=== PATIENT | female | born 1985 | race Caucasian/White ===

== ENCOUNTER 2018-05-12 19:49 | Observation (INO) ==
[2018-05-12 20:11] LABS: Basophils % 0.4 % (0.1-2.0); Eosinophils # 0.2 K/mm3 (0.0-0.4); Eosinophils % 1.9 % (0.1-12.0); Lymphocytes # 4.5 K/mm3 (0.7-4.5); Lymphocytes % 52.2 K/mm3 (10-50); Mean Corpuscular HGB Conc 33.3 g/dL (31.8-35.4); Mean Corpuscular Hemoglobin 29.4 pg (27.0-31.2); Mean Corpuscular Volume 88.4 fl (81-99); Mean Platelet Volume 8.2 fl (7.4-10.4); Monocytes # 0.5 K/mm3 (0.1-1.0); Monocytes % 5.4 % (1.7-9.3); Neutrophils # 3.5 K/mm3 (1.8-7.8); Neutrophils % 40.1 % (37.0-80.0); Platelet Count 253 K/mm3 (142-424); Red Blood Count 4.76 M/mm3 (4.20-5.40); Red Cell Distribution Width 12.7 % (11.5-17.5); White Blood Count 8.7 K/mm3 (4.8-10.8)
[2018-05-12 20:28] LABS: Alanine Aminotransferase 21 U/L (12-78); Albumin/Globulin Ratio 1.1 (1.1-1.8); Alkaline Phosphatase 78 U/L (46-116); Anion Gap 13.8 mEq/L (5-15); Aspartate Amino Transferase 10 U/L (15-37); Bilirubin,Total 0.3 mg/dL (0.2-1.0); Blood Urea Nitrogen 3 mg/dL (7-18); Calcium 8.6 mg/dL (8.5-10.1); Carbon Dioxide 25 mmol/L (21.0-32.0); Chloride 107 mmol/L (98-107); Globulin 3.6 gm/dl (1.3-3.2); Glucose 101 mg/dL (74-106); Sodium 143 mmol/L (136-145); Total Protein,Serum 7.6 gm/dL (6.4-8.2)
[2018-05-12 20:29] LABS: Potassium 2.8 mmoL/L (3.5-5.1)
--- NOTE | 2018-05-12 21:25 | Emergency Department Note ---
ED Disposition Clinical Impression: Unstable angina, Hypokalemia Disposition: Admitted as Observation Condition on Discharge: Good Referrals: Bibi Price APRN [Primary Care Provider] - - Critical Care Critical Care Time: No Attestation: On 05/12/18, the high probability of a clinically significant, sudden or life threatening deterioration of the following system(s) required my full and direct attention, intervention and personal management. The time I documented below is in addition to time spent performing reported procedures but includes the following listed in this critical care notation. Medical Decision Making - Medical Records Medical records reviewed: Yes: I reviewed the patient's medical records. - Booker Inquiry Pt receiving controlled substance: No Vital Signs: 05/12/18 19:49 Temperature 98.3 F Temperature Source Oral Pulse Rate [Right Radial] 108 H Respiratory Rate 18 Blood Pressure [Right Arm] 147/89 Blood Pressure Mean [Right Arm] 108 Blood Pressure Source [Right Arm] Automatic Cuff Blood Pressure Position [Right Arm] Sitting 02 Sat by Pulse Oximetry 99 Oxygen Delivery Method Room Air - Lab Data Lab results reviewed: Yes: I reviewed the patient's lab results. Lab Results 05/12/18 19:50: WBC 8.7, RBC 4.76, Hgb 14.0, Hct 42.0, MCV 88.4, MCH 29.4, MCHC 33.3, RDW 12.7, Plt Count 253, MPV 8.2, Neut % (Auto) 40.1, Lymph % (Auto) 52.2 H, [place] % (Auto) 5.4, Eos % (Auto) 1.9, Baso % (Auto) 0.4, Neut # (Auto) 3.5, Lymph # (Auto) 4.5, [place] # (Auto) 0.5, Eos # (Auto) 0.2, Baso # (Auto) 0.0 05/12/18 19:50: Sodium 143, Potassium 2.8 L*, Chloride 107, Carbon Dioxide 25, Anion Gap 13.8, BUN 3 L, Creatinine 0.80, Estimated Creat Clear 99, Estimated GFR 82, Est GFR ( Amer) 99, Glucose 101, Calcium 8.6, Total Bilirubin 0.3 , AST 10 L, ALT 21, Alkaline Phosphatase 78, Troponin I < 0.02, Total Protein 7.6, Albumin 4.0, Globulin 3.6 H, Albumin/Globulin Ratio 1.1 Result diagrams: 05/12/18 19:50 05/12/18 19:50 Orders (Tests/Meds): ED MEDICATIONS Generic Name Dose Route Start Last Admin Trade Name Freq PRN Reason Stop Dose Admin Enoxaparin Sodium 60 mg 05/12/18 21:15 Lovenox 60mg/0.6ml Syringe SQ 06/11/18 21:14 BID EDIS Discontinued Medications Generic Name Dose Route Start Last Admin Trade Name Freq PRN Reason Stop Dose Admin Aspirin 324 mg 05/12/18 20:46 05/12/18 20:54 Aspirin 81mg Chewable Tablet PO 05/12/18 20:47 324 mg ONCE ONE Administration Nitroglycerin 1 gm 05/12/18 20:47 05/12/18 20:54 Nitroglycerin 1 Inch Oint Udp TD 05/12/18 20:48 1 gm ONCE ONE Administration Ticagrelor 180 mg 05/12/18 21:12 Brilinta 90mg Tablet PO 05/12/18 21:13 ONCE ONE ORDERS Category Date Time Status CXR 2 view (NOT portable) [XR chest 2V] Stat Exams 05/12/18 19:59 Taken Complete Blood Count Auto Diff Stat Lab 05/12/18 19:50 Results EKG Request [ECG Request by /Demetrio] Stat Y 05/12/18 20:02 Ordered - Radiology Data #1 Image(s): Chest Image Reviewed: Yes I reviewed the patient's radiology image Preliminary Findings: Normal/NAD - ECG Data Tracing #1 I reviewed this ECG and interpreted as documented below: Normal Sinus Rhythm: Yes Ischemic changes: non-specific ST-T wave changes - Physician Consults Physician Consulted: candice Reason -: Admission Additional Consult: merry Reason -: Pt condition Chest Pain HPI - General Chief Complaint: Chest Pain Stated Complaint: chest pain Time Seen by Provider: 05/12/18 20:15 Mode of Arrival: Ambulatory Source of Information: Patient, Medical Record Limitations: No Limitations Description of Symptoms (Recalled from ER Triage Doc. by RN): Chest pain that started two days ago and got worse today. Pt reports squeezing pain across the top of her chest with pain radiating into her right arm and neck with intermittenet N/V. - History of Present Illness HPI narrative: tightness chest pain on- off last 3 days described as tightness - no hx of heart disease with rad to neck MD complaint: chest pain indicative of cardiac Onset (ago): day(s) Duration: now resolved Activity at onset: during rest Pain location: substernal Severity: moderate Quality: tightness Pain radiation: neck Risk Factors for CAD: Family Hx of CAD, Smoking Treatments prior to or on arrival for Cardiac Chest Pain: none - SERENITY Score Non-Stemi Age of patient: Less than 65 yrs Number of risk factors for CAD: Presence of 3 or more Prior coronary artery stenosis(seen in coronary angiography): Less than 50% ST-Segment deviation on ECG (more than 1 min): Present Prior aspirin intake: No ASA in the last 7 days Severe anginal chest pain: Two or more episodes in last 24 hours Elevated cardiac markers(CK-MB or troponin): Absent Non-Stemi Risk Score: 3 - Related Data On Oral Contraceptives: No Home Medications Medication Instructions Recorded Confirmed Escitalopram Oxalate [Lexapro] 5 mg PO DAILY 05/12/18 05/12/18 Levothyroxine Sodium 88 mcg PO DAILY 05/12/18 05/12/18 [Levothyroxine 88mcg (0.088mg) Tab] Allergies Allergy/AdvReac Type Severity Reaction Status Date / Time No Known Allergies Allergy Verified 05/12/18 19:54 [facility] History I have reviewed the patient's past medical history: Yes - Social History Smoking Status: Current every day smoker Tobacco Type: cigarettes Alcohol Intake: never - Psychiatric History Expresses thoughts of harming self/others: None Suicide Plan Description: No Plan ROS Obtained: Yes All systems reviewed & no additional complaints - Constitutional Constitutional: Denies fever(s) - Eyes Eyes: Denies change in vision - ENT Ears, Nose, Mouth, and Throat: Denies sore throat - Cardiovascular Cardiovascular: Reports chest pain, Denies leg edema - Respiratory Respiratory: No cough - Gastrointestinal Gastrointestingal: Denies: abdominal pain - Genitourinary Female Genitourinary: Denies hematuria - Musculoskeletal Musculoskeletal: Denies joint pain, Denies joint swelling - Integumentary/Breasts Skin/Breast: Denies rash - Neurologic Neurologic: Denies seizure-like activity Physical Exam - General General appearance: in no apparent distress - Head Head exam: normocephalic - Eye Eye exam: Present: PERRL, EOMI - ENT ENT exam: Present: mucous membranes moist - Neck Neck exam: Present: trachea midline - Respiratory Respiratory exam: Present: normal lung sounds bilaterally. Absent: respiratory distress - Cardiovascular Cardiovascular exam: Present: regular rate. Absent: systolic murmur, rubs - Abdominal Exam Abdominal exam: Present: soft - Extremities Exam Extremities exam: Absent: calf tenderness - Neurological Exam Neurological exam: Present: alert, oriented X3, CN II-XII intact - Psychiatric Psychiatric exam: Present: normal affect - Skin Skin exam: Absent: rash
[2018-05-12 21:28] LABS: Eosinophils % 2 % (0-3); Lymphocytes % 62 % (10-50); Monocytes % 1 % (2-9); Neutrophils % 35 % (42-76); Total Cells Counted 100
[2018-05-12 21:29] LABS: Anisocytosis 1+
[2018-05-13 04:31] LABS: Basophils % 0.5 % (0.1-2.0); Eosinophils # 0.1 K/mm3 (0.0-0.4); Eosinophils % 1.7 % (0.1-12.0); Hematocrit 36.8 % (37.0-47.0); Lymphocytes # 3.5 K/mm3 (0.7-4.5); Lymphocytes % 49.2 K/mm3 (10-50); Mean Corpuscular HGB Conc 33.8 g/dL (31.8-35.4); Mean Corpuscular Hemoglobin 29.9 pg (27.0-31.2); Mean Corpuscular Volume 88.4 fl (81-99); Mean Platelet Volume 8.1 fl (7.4-10.4); Monocytes # 0.3 K/mm3 (0.1-1.0); Monocytes % 4.8 % (1.7-9.3); Neutrophils # 3.1 K/mm3 (1.8-7.8); Neutrophils % 43.9 % (37.0-80.0); Platelet Count 212 K/mm3 (142-424); Red Blood Count 4.16 M/mm3 (4.20-5.40); Red Cell Distribution Width 12.7 % (11.5-17.5); White Blood Count 7.2 K/mm3 (4.8-10.8)
[2018-05-13 04:40] LABS: Calcium 8.1 mg/dL (8.5-10.1)
[2018-05-13 04:42] LABS: Hemoglobin 12.5 g/dL (12.2-16.2)
--- NOTE | 2018-05-13 07:28 | Pharmacy Consult Notes ---
[facility] [place] Pharmacy VTE Monitoring - Patient Demographics Admission date: 05/12/18 Report Date: 05/13/18 Time: : Allergies/Adverse Reactions: Patient Allergies No Known Allergies Allergy (Verified 05/12/18 19:54) Height: 1.75 m Weight: 60.98 kg Patient Problems: Current Active Problems Unstable angina (Acute) Hypokalemia (Acute) - VTE Risk Labs: VTE Related Lab Results Hgb 12.5 g/dL (12.2-16.2) D 05/13/18 04:10 Hct 36.8 % (37.0-47.0) L 05/13/18 04:10 Plt Count 212 K/mm3 (142-424) 05/13/18 04:10 BUN 4 mg/dL (7-18) L D 05/13/18 04:10 Creatinine 0.65 mg/dL (0.55-1.02) 05/13/18 04:10 Estimated Creat Clear 117 mL/min (0-300) 05/13/18 04:10 Was VTE Risk Assessment Performed: Yes VTE Score: 2 VTE Risk Level: Low Risk - Prophylaxis VTE Prophylaxis Ordered?: Yes Types of VTE Prophylaxis: Pharmacological Pharmacologic Type: Enoxaparin - VTE Diagnosis Confirmed Treatment or plan recommended: Continue Current Treatment
--- NOTE | 2018-05-13 08:29 | Consult Report ---
History of Present Illness Consult date: 05/13/18 Requesting physician: Faisal Syed Consult reason: chest pain Chief complaint: chest pain Additional Medical History:: 1. History of her irritable bowel syndrome 2. Tobacco use, 1.5 packs per day 13 years History of present illness: 32-year-old white female with history of irritable bowel syndrome and tobacco use presented to the emergency department for recurrent episodes of substernal chest squeezing sensation. Symptoms were associated with nausea but no vomiting. She denies any diaphoresis. No prior cardiac history. Patient was admitted for further evaluation. Troponins have returned normal overnight EKG is sinus with no acute ST segment changes. Cardiology consulted for evaluation. Patient does drink several caffeinated beverages per day and does have intermittent diarrhea with hypokalemia for which she takes supplementation from time to time. Preliminary echocardiogram shows normal left ventricular size and function with no significant valvular heart disease. [facility] History Medical History: Denies:: Cancer, Diabetes Mellitus Type 1, Diabetes Mellitus Type 2, Internal Pacemaker, MRSA Other Medical History: Reports: Thyroid Disease (HYPOTHYROIDISM) Laterality Cases: Right: Other Other Surgeries: No: Pacemaker Amputation: No Fractures: Yes (FINGER FX) - *Social History Educational Level: Completed College Smoking Status: Current every day smoker Tobacco Type: cigarettes # Packs/Day (cigarettes): 1 #Yrs smoked (if former smoker): 19 Alcohol Intake: never Occupational Status: employed Housing: house Household Members: spouse, family, children - Psychiatric History Expresses thoughts of harming self/others: None Suicide Plan Description: No Plan *Family Hx:: Coronary Artery Disease, Diabetes Meds Home Medications Medication Instructions Recorded Confirmed Type Escitalopram Oxalate [Lexapro] 5 mg PO DAILY 05/12/18 05/12/18 History Levothyroxine Sodium 88 mcg PO DAILY 05/12/18 05/12/18 History [Levothyroxine 88mcg (0.088mg) Tab] Allergies Allergy/AdvReac Type Severity Reaction Status Date / Time No Known Allergies Allergy Verified 05/12/18 19:54 Review of Systems - *Cardiovascular Reports chest pain, Denies shortness of breath with activity - *Gastrointestinal Reports change in stools, Reports loose stools - *Musculoskeletal Denies joint pain - *Neurologic Denies seizure-like activity Exam Vital signs and Labs for Last 24 Hours: Temp Pulse Resp BP Pulse Ox 98.0 F 74 16 107/62 98 07/27/18 04:55 05/13/18 04:55 05/13/18 04:55 05/13/18 04:55 05/13/18 04:55 Laboratory Results - last 24 hr 05/12/18 19:50: WBC 8.7, RBC 4.76, Hgb 14.0, Hct 42.0, MCV 88.4, MCH 29.4, MCHC 33.3, RDW 12.7, Plt Count 253, MPV 8.2, Neut % (Auto) 40.1, Lymph % (Auto) 52.2 H, [place] % (Auto) 5.4, Eos % (Auto) 1.9, Baso % (Auto) 0.4, Neut # (Auto) 3.5, Lymph # (Auto) 4.5, [place] # (Auto) 0.5, Eos # (Auto) 0.2, Baso # (Auto) 0.0, Total Counted 100, Neutrophils % (Manual) 35 L, Lymphocytes % (Manual) 62 H, Monocytes % (Manual) 1 L, Eosinophils % (Manual) 2, Platelet Estimate Normal, Anisocytosis 1+ 05/12/18 19:50: Sodium 143, Potassium 2.8 L*, Chloride 107, Carbon Dioxide 25, Anion Gap 13.8, BUN 3 L, Creatinine 0.80, Estimated Creat Clear 99, Estimated GFR 82, Est GFR ( Amer) 99, Glucose 101, Calcium 8.6, Total Bilirubin 0.3 , AST 10 L, ALT 21, Alkaline Phosphatase 78, Troponin I < 0.02, Total Protein 7.6, Albumin 4.0, Globulin 3.6 H, Albumin/Globulin Ratio 1.1 05/12/18 22:03: Troponin I < 0.02 05/13/18 01:30: Troponin I < 0.02 05/13/18 04:10: Troponin I < 0.02 05/13/18 04:10: WBC 7.2, RBC 4.16 L, Hgb 12.5 D, Hct 36.8 L, MCV 88.4, MCH 29.9 , MCHC 33.8, RDW 12.7, Plt Count 212, MPV 8.1, Neut % (Auto) 43.9, Lymph % (Auto ) 49.2, [place] % (Auto) 4.8, Eos % (Auto) 1.7, Baso % (Auto) 0.5, Neut # (Auto) 3.1, Lymph # (Auto) 3.5, [place] # (Auto) 0.3, Eos # (Auto) 0.1, Baso # (Auto) 0.0 05/13/18 04:10: Sodium 143, Potassium 4.0 D, Chloride 110 H, Carbon Dioxide 25 , Anion Gap 12.0, BUN 4 L D, Creatinine 0.65, Estimated Creat Clear 117, Estimated GFR 104, Est GFR ( Amer) 126 D, Glucose 100, Calcium 8.1 L, Triglycerides 94, Cholesterol 135 L, LDL Cholesterol 89, VLDL Cholesterol 19, HDL Cholesterol 27 L, Cholesterol/HDL Ratio 5.0 H I & O for Last 24 hours: Intake & Output 05/10/18 05/11/18 05/12/18 05/13/18 11:59 11:59 11:59 11:59 Intake Total 624 / 624 Balance 624 / 624 Weight 134 lb 7 oz - *Routine Neck Exam Absent: JVD, carotid bruit - *Routine Respiratory Exam Present: CTA bilaterally - *Routine Cardiovascular Exam Present: RRR. Absent: murmur, gallop - *Routine Extremities Exam Absent: edema - *Routine Neurological Exam Present: alert, oriented X3, moving all extremities Assessment and Plan (1) Chest pain Current visit: Yes Status: Acute Category: Medical Code(s): R07.9 - Chest pain, unspecified (2) History of irritable bowel syndrome Current visit: Yes Status: Acute Category: Medical Code(s): Z87.19 - Personal history of other diseases of the digestive system (3) Hypothyroidism Current visit: Yes Status: Acute Category: Medical Code(s): E03.9 - Hypothyroidism, unspecified (4) Hypokalemia Current visit: Yes Status: Acute Category: Medical Code(s): E87.6 - Hypokalemia - Assessment and plan all Dx Assessment and Plan for all problems:: 1. Patient is a SERENITY score of 1 with recurrent chest pain. In light of the normal troponins, normal EKG and normal echo would recommend patient start antispasmodic medication in the form of Norvasc which also has antianginal properties. Patient could be discharged home for outpatient follow-up for consideration of stress testing. 2. Follow-up in our office in 1-2 weeks. 2 and 3. Smoking cessation recommended also caffeine moderation. 3. Recommend evaluation by gastroenterology.
--- NOTE | 2018-05-13 08:49 | H&P/Discharge Summary ---
General - General Admission date:: 05/12/18 Discharge date: 05/13/18 *Admission Date: 05/12/18 *Chief complaint: chest pain *History of present illness: Ms. Dorantes is a 32-year-old white female with a history of irritable bowel syndrome, tobacco use, and caffeine use, who presented to the emergency department for recurrent episodes of a squeezing sensation in her substernal chest. Symptoms were associated with nausea but no vomiting. She denies any diaphoresis. She was SOA. She presented to the ER for evaluation. She did have hypokalemia and her CP improved with nitro. She has no prior cardiac history. She was admitted for further evaluation. Troponins have all been normal and her EKG showed sinus with no acute ST segment changes. Cardiology was consulted for evaluation. [facility] History Medical History: Reports:: Depression Denies:: Cancer, Diabetes Mellitus Type 1, Diabetes Mellitus Type 2, Internal Pacemaker, MRSA Other Medical History: Reports: Hypothyroidism, Thyroid Disease (HYPOTHYROIDISM) Comment: Tachycardia, IBS Laterality Cases: Right: Other Other Surgeries: No: Pacemaker Amputation: No Fractures: Yes (FINGER FX) Comment: C-scope, Right foot - *Social History Educational Level: Completed College Smoking Status: Current every day smoker Tobacco Type: cigarettes # Packs/Day (cigarettes): 1 #Yrs smoked (if former smoker): 19 Alcohol Intake: never Occupational Status: employed Housing: house Household Members: spouse, family, children - Psychiatric History Expresses thoughts of harming self/others: None Suicide Plan Description: No Plan *Family Hx:: Coronary Artery Disease, Diabetes Review of Systems - Constitutional Denies fatigue, Denies fever(s), Denies weakness - Eyes Denies blurry vision, Denies double vision - ENT Denies nasal congestion, Denies sore throat - *Cardiovascular Reports chest pain, Reports shortness of breath with activity - *Respiratory Denies chest congestion, Denies cough - *Gastrointestinal Reports loose stools, Reports nausea, Denies abdominal pain, Denies vomiting - *Genitourinary Denies difficulty urinating, Denies painful urination - *Musculoskeletal Denies joint pain, Denies body aches - *Neurologic Reports headache(s), Reports dizziness, Denies seizure-like activity Exam Vital signs and Labs for Last 24 Hours: Temp Pulse Resp BP Pulse Ox 97.7 F 51 L 18 100/57 98 05/13/18 08:00 05/13/18 08:00 05/13/18 08:00 05/13/18 08:00 05/13/18 08:00 Laboratory Results - last 24 hr 05/12/18 19:50: WBC 8.7, RBC 4.76, Hgb 14.0, Hct 42.0, MCV 88.4, MCH 29.4, MCHC 33.3, RDW 12.7, Plt Count 253, MPV 8.2, Neut % (Auto) 40.1, Lymph % (Auto) 52.2 H, [place] % (Auto) 5.4, Eos % (Auto) 1.9, Baso % (Auto) 0.4, Neut # (Auto) 3.5, Lymph # (Auto) 4.5, [place] # (Auto) 0.5, Eos # (Auto) 0.2, Baso # (Auto) 0.0, Total Counted 100, Neutrophils % (Manual) 35 L, Lymphocytes % (Manual) 62 H, Monocytes % (Manual) 1 L, Eosinophils % (Manual) 2, Platelet Estimate Normal, Anisocytosis 1+ 05/12/18 19:50: Sodium 143, Potassium 2.8 L*, Chloride 107, Carbon Dioxide 25, Anion Gap 13.8, BUN 3 L, Creatinine 0.80, Estimated Creat Clear 99, Estimated GFR 82, Est GFR ( Amer) 99, Glucose 101, Calcium 8.6, Total Bilirubin 0.3 , AST 10 L, ALT 21, Alkaline Phosphatase 78, Troponin I < 0.02, Total Protein 7.6, Albumin 4.0, Globulin 3.6 H, Albumin/Globulin Ratio 1.1 05/12/18 22:03: Troponin I < 0.02 05/13/18 01:30: Troponin I < 0.02 05/13/18 04:10: Troponin I < 0.02 05/13/18 04:10: WBC 7.2, RBC 4.16 L, Hgb 12.5 D, Hct 36.8 L, MCV 88.4, MCH 29.9 , MCHC 33.8, RDW 12.7, Plt Count 212, MPV 8.1, Neut % (Auto) 43.9, Lymph % (Auto ) 49.2, [place] % (Auto) 4.8, Eos % (Auto) 1.7, Baso % (Auto) 0.5, Neut # (Auto) 3.1, Lymph # (Auto) 3.5, [place] # (Auto) 0.3, Eos # (Auto) 0.1, Baso # (Auto) 0.0 05/13/18 04:10: Sodium 143, Potassium 4.0 D, Chloride 110 H, Carbon Dioxide 25 , Anion Gap 12.0, BUN 4 L D, Creatinine 0.65, Estimated Creat Clear 117, Estimated GFR 104, Est GFR ( Amer) 126 D, Glucose 100, Calcium 8.1 L, Triglycerides 94, Cholesterol 135 L, LDL Cholesterol 89, VLDL Cholesterol 19, HDL Cholesterol 27 L, Cholesterol/HDL Ratio 5.0 H I & O for Last 24 hours: Intake & Output 05/10/18 05/11/18 05/12/18 05/13/18 11:59 11:59 11:59 11:59 Intake Total 624 / 624 Balance 624 / 624 Weight 134 lb 7 oz - Constitutional no acute distress - *Routine HEENT Exam Head: Present: normocephalic, atraumatic Eye: Present: EOMI, PERRL ENT: Present: mucous membranes moist - *Routine Neck Exam Present: supple, full ROM - *Routine Respiratory Exam Present: CTA bilaterally - *Routine Cardiovascular Exam Present: RRR - *Routine Abdominal Exam Present: soft, normoactive bowel sounds. Absent: tenderness - *Routine Extremities Exam Absent: edema - *Routine Skin Exam Present: intact - *Routine Neurological Exam Present: alert, oriented X3 Hospital Course Hospital Course: Cardiology saw the patient and her Preliminary echocardiogram showed a normal left ventricular size and function with no significant valvular heart disease. Her heart enzymes were all normal. She felt much better once her potassium returned to normal and has had no further chest pain. She states she has had to take potassium supplementation on occasion due to her recurrent diarrhea from IBS. Cardiology felt she could be discharged home on a low-dose of Norvasc 2.5mg. 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 Results Labs on day of discharge: - Impressions CXR - Negative chest, no acute finding DS: Diagnosis - Discharge Diagnosis (1) Chest pain Status: Acute (2) History of irritable bowel syndrome Status: Chronic (3) Hypothyroidism Status: Chronic (4) Hypokalemia Status: Resolved Discharge Medications Discharge Medications: Home Medications Medication Instructions Recorded Confirmed Type Levothyroxine Sodium 88 mcg PO DAILY 05/12/18 05/12/18 History [Levothyroxine 88mcg (0.088mg) Tab] - Medications for Discharge Home Medication List at Discharge: New Amlodipine Besylate [Norvasc 2.5mg Tab] 2.5 mg PO DAILY #30 tab Continue Levothyroxine Sodium [Levothyroxine 88mcg (0.088mg) Tab] 88 mcg PO DAILY Discontinued Escitalopram Oxalate [Lexapro] 5 mg PO DAILY Disposition Disposition: Home, Self-Care
--- NOTE | 2018-05-13 10:26 | Cardiology Report ---
PROCEDURE: 2-D M-mode and color Doppler study INDICATIONS FOR THE TEST: Chest pain + COPD Heart Murmur Tobacco Smoking+ Palpitations Fatigue Syncope Edema Hypertension Diabetes Mellitus Rheumatic Fever SOB+RENEE Obesity Hyperlipidemia Family History HD Additional History PATIENT INFORMATION HEIGHT: 69 WEIGHT:134 GENDER: Female B/P:147/89 2-D/M-MODE INTERPRETATION: 2-D MEASUREMENTS OBSERVED VALUES IN CMS Right Ventricular Dimension (RVDd) 2.5 Interventricular Septum (Thickness)(IVsd) 1.1 Left Ventricular Internal Dimensions(LVIDd) 4.4 Left Ventricular Posterior Wall (Thickness)(LVPWd) 0.6 Aortic Root 2.6 Aortic Cusp Separation 2.1 Left Atrial Dimensions (LAD) 3.3 2D 1. Left atrium is normal size, left ventricle is normal size, there is no concentric left ventricular hypertrophy, visually estimated ejection fraction 55% with no obvious regional wall motion abnormality. 2. The right atrium and right ventricle are normal size and contractility. 3. The aortic, mitral and tricuspid valvular grossly normal. 4. The pulmonic valve is poorly visualized. 5. No significant pericardial effusion noted. DOPPLER INTERROGATION: Doppler interrogation of the aortic, mitral and tricuspid valvular presence of mild mitral and tricuspid regurgitation, tricuspid and jet velocity is insufficient for calculation of the right ventricular systolic pressure, diastolic parameters are within normal range. CONCLUSION: 1. Normal left ventricular size, preserved left ventricular systolic function, visually estimated ejection fraction 55% with no obvious regional wall motion abnormality, diastolic parameters are within normal range. 2. Mild mitral and tricuspid regurgitation 3. No significant pericardial effusion noted.
== END 2018-05-13 09:31 | disposition home or self-care (01) ==
LOC: ER 19:49 → 2ND 19:49
PROVIDERS: ADMIT Family Medicine; ATTEND Family Medicine
CPT/HCPCS: 36415; 71020; 71046; 80048; 80053; 80061; 84484; 85007; 85025; 93005; 93306; 96372; 99284; G0378